=== PATIENT | female | born 1955 | race Caucasian/White ===

== ENCOUNTER 2019-09-01 09:23 | Outpatient (CLI) | payer OTHER, SELFPAY ==
--- NOTE | 2019-09-01 09:37 | XRR_ITS ---
PROCEDURE INFORMATION: Exam: XR Left Hand Exam date and time: 09/01/2019 9:52 AM Age: 64 years old Clinical indication: Hand; Left; Prior surgery; Surgery date: 6+ months; Surgery type: Carpal tunnel; Patient HX: C/O constant pain finger joint and swelling; Additional info: Finger joint pain, swelling TECHNIQUE: Imaging protocol: XR Left hand. Views: 1 or 2 views. COMPARISON: No relevant prior studies available. FINDINGS: Bones/joints: Mild degenerative changes first carpometacarpal joint. osseous structures of the hand are without an acute process. Distal radioulnar joint and radiocarpal joints grossly normal. Carpus without fracture. Metacarpals and phalangeal without fracture or dislocation. No erosive changes or periarticular calcifications. Degenerative changes are present in the distal interphalangeal joints and to a lesser degree the more proximal interphalangeal articulations. Soft tissues: See Bones/joints finding. XR/XR hand LT 2V [id number] IMPRESSION: Mild degenerative changes.
--- NOTE | 2019-09-01 09:38 | XRR_ITS ---
PROCEDURE INFORMATION: Exam: XR Right Hand Exam date and time: 09/01/2019 9:52 AM Age: 64 years old Clinical indication: Hand; Right; Prior surgery; Surgery date: 6+ months; Surgery type: Carpal tunnel; Patient HX: C/O constant finger joint pain, swelling TECHNIQUE: Imaging protocol: XR Right hand. Views: 1 or 2 views. COMPARISON: No relevant prior studies available. FINDINGS: Bones/joints: osseous structures of the hand are without an acute process. Distal radioulnar joint and radiocarpal joints grossly normal. Carpus without fracture. Metacarpals and phalangeal without fracture or dislocation. No erosive changes or periarticular calcifications. Mild degenerative changes first carpometacarpal joint. Soft tissues: See Bones/joints finding. XR/XR hand RT 2V [id number] IMPRESSION: Mild degenerative changes
== END 2019-09-01 09:24 | disposition home or self-care (01) ==
LOC: RAD 09:30
PROVIDERS: PCP Family Medicine; Visit Provider Internal Medicine
DX: M25.541 Pain in joints of right hand (principal); M79.89 Other specified soft tissue disorders
CPT/HCPCS: 73120

== ENCOUNTER 2019-09-14 12:01 | Outpatient (CLI) | payer MEDICAID, SELFPAY ==
--- NOTE | 2019-09-14 12:09 | XRR_ITS ---
PROCEDURE INFORMATION: Exam: XR Lumbosacral Spine, 2 or 3 Views Exam date and time: 09/14/2019 12:17 PM Age: 64 years old Clinical indication: Low back pain TECHNIQUE: Imaging protocol: XR of the lumbosacral spine, 2 or 3 views. COMPARISON: CR Lumbar Spine Flex/Extens [id number] 06/09/2017 5:32 PM FINDINGS: Vertebrae: Normal overall alignment. No fracture evident. Disc spaces reasonably well preserved. Minor vertebral body endplate spurring L3-L4. Mild degenerative facet sclerosis L5-S1. Soft tissues: Unremarkable. XR/XR lumbar spine 2-3V* [id number] IMPRESSION: No acute findings. Mild degenerative changes.
== END 2019-09-14 12:02 | disposition home or self-care (01) ==
LOC: RAD 12:04
PROVIDERS: PCP Family Medicine; Visit Provider Internal Medicine
DX: M54.5 Low back pain (principal)
CPT/HCPCS: 72100

== ENCOUNTER 2021-04-09 10:37 | Outpatient (CLI) | payer MEDICAID, SELFPAY ==
--- NOTE | 2021-04-09 10:54 | XR_ITS ---
WS: [id number] Exam: XR lumbar spine 2-3V* [id number] Date/Time of Exam: 04/09/2021 10:59 AM Reason For Exam: BACK PAIN Comparison 09/14/2019. No fracture or dislocation. Diffuse osteopenia. Disc spaces are preserved. Posterior elements are int act. Mild facet DJD at L4-5 and L5-S1. XR/XR lumbar spine 2-3V* [id number] IMPRESSION: 1. No fracture or malalignment. 2. Osteopenia and mild degenerative change.
== END 2021-04-09 10:38 | disposition home or self-care (01) ==
LOC: RAD 10:44
PROVIDERS: PCP Family Medicine; Visit Provider Internal Medicine
DX: M54.50 Low back pain, unspecified (principal); M85.88 Other specified disorders of bone density and structure, other site
CPT/HCPCS: 72100

== ENCOUNTER 2022-01-06 10:01 | Outpatient (CLI) | payer OTHER, SELFPAY ==
--- NOTE | 2022-01-06 10:44 | XR_ITS ---
WS: [id number] TECHNIQUE: 2 views of the left hand CLINICAL INFORMATION: HAND PAIN/OSTEOARTHRITIS COMPARISON: September 01, 2019 FINDINGS: Osteopenia. Mild degenerative narrowing of the radiocarpal joint. Normal scaphoid and lunate. Mild de generative arthritis 1st CMC and STT. Normal metacarpals. Mild degenerative narrowing involving the PIP and DIP joints. Normal MCP joints. No significant erosive changes XR/XR hand LT 2V [id number] IMPRESSION: 1. Osteopenia. 2. Mild degenerative narrowing at the radiocarpal joint. 3. No significant erosive changes.
--- NOTE | 2022-01-06 10:44 | XR_ITS ---
WS: [id number] TECHNIQUE: 2 views of the right hand CLINICAL INFORMATION: HAND PAIN/OSTEOARTHRITIS COMPARISON: September 01, 2019 FINDINGS: Osteopenia. Moderate degenerative narrowing radiocarpal joint. Normal scaphoid and lunate. Mild degenerative arthritis at the 1st CMC and STT. Minimal degenerative narrowing involving the PIP and DIP joints. Normal metacarpals. Normal MCP joint. XR/XR hand RT 2V [id number] IMPRESSION: 1. Osteopenia. 2. Moderate degenerative narrowing involving the radiocarpal joint. 3. Otherwise mild joint space narrowing as described above. 4. No significant erosive changes.
== END 2022-01-06 10:02 | disposition home or self-care (01) ==
PROVIDERS: PCP Family Medicine; Visit Provider Dermatology
DX: M85.842 Other specified disorders of bone density and structure, left hand (principal); M85.841 Other specified disorders of bone density and structure, right hand; M79.641 Pain in right hand; M79.642 Pain in left hand
CPT/HCPCS: 73120

== ENCOUNTER → 2022-01-21 09:47 | Outpatient (BNVA) | payer MEDICAID, SELFPAY | PROVIDERS: PCP Family Medicine; Visit Provider Family Medicine | DX: Z00.00 Encounter for general adult medical examination without abnormal findings (principal); I10 Essential (primary) hypertension; D64.9 Anemia, unspecified; G89.29 Other chronic pain; M47.9 Spondylosis, unspecified; Z95.2 Presence of prosthetic heart valve | CPT/HCPCS: 80053; 80061; 84443; 85025 ==

== ENCOUNTER 2022-04-24 06:00 | Outpatient (RCR) | payer MEDICARE, MEDICAID, SELFPAY | END 2022-05-16 23:59 | disposition home or self-care (01) | LOC: SPT 06:00 | PROVIDERS: PCP Family Medicine; Visit Provider Nurse Practitioner Adult Health | DX: Z98.1 Arthrodesis status (principal); M54.9 Dorsalgia, unspecified; G89.29 Other chronic pain | CPT/HCPCS: 97110; 97112; 97161 ==

== ENCOUNTER 2022-09-24 12:58 | Outpatient (CLI) | payer MEDICARE, MEDICAID, SELFPAY ==
--- NOTE | 2022-09-24 13:00 | XR_ITS ---
WS: [id number] DEXA (DUAL ENERGY X-RAY ABSORPTIOMETRY) Bone mineral density was performed using a [employer] machine. HISTORY: post-menopausal COMPARISON: None available. Lumbar spine BMD (L1-L4): 0.805 g/cm2 T score: -3.1 Z score: -1.8 Total hip BMD: Left: 0.878 g/cm2. T score: -1.0 Z score: 0.0 Right: 0.874 g/cm2. T score: -1.1 Z score: 0.0 10 year probability of a major osteoporotic fracture is 12.2% IMPRESSION: OSTEOPOROSIS based upon the WHO classification for females.
== END 2022-09-24 12:59 | disposition home or self-care (01) ==
PROVIDERS: PCP Family Medicine; Visit Provider Family Medicine
DX: Z78.0 Asymptomatic menopausal state (principal); M81.0 Age-related osteoporosis without current pathological fracture
CPT/HCPCS: 77080

== ENCOUNTER → 2022-11-06 10:01 | Outpatient (BNVA) | payer MEDICARE, MEDICAID, SELFPAY | PROVIDERS: PCP Family Medicine; Visit Provider Family Medicine | DX: Z01.419 Encounter for gynecological examination (general) (routine) without abnormal findings (principal) | CPT/HCPCS: 87624 ==

== ENCOUNTER → 2022-11-24 08:48 | Outpatient (BNVA) | payer MEDICARE, MEDICAID, SELFPAY | PROVIDERS: PCP Family Medicine; Visit Provider Podiatrist Foot & Ankle Surgery | DX: M72.2 Plantar fascial fibromatosis (principal) | CPT/HCPCS: 99203 ==

== ENCOUNTER 2022-11-28 08:47 | Outpatient (CLI) | payer MEDICARE, MEDICAID, SELFPAY ==
--- NOTE | 2022-11-28 09:09 | MM_ITS ---
WS: [id number] Bilateral screening 3D tomosynthesis digital mammogram, 11/28/2022 Clinical Data: SCREEN Comparison: 07/02/2011, 07/24/2008 Findings: The breast parenchymal pattern shows fibroglandular tissue. No spiculated masses or clustered calcifi cations are seen. There are no secondary signs of carcinoma. There is an asymmetric density in the me dial aspect of the right breast measuring 1.2 cm unchanged. Impression: 1. Negative bilateral mammogram unchanged. 2. Recommend annual screening mammograms. MM/[place] [id number] BIRADS: 1-Negative FOLLOW UP: 1 Year Follow-up The CAD production checker was used.
== END 2022-11-28 08:48 | disposition home or self-care (01) ==
LOC: RAD 08:48
PROVIDERS: PCP Family Medicine; Visit Provider Family Medicine
DX: Z12.31 Encounter for screening mammogram for malignant neoplasm of breast (principal)
CPT/HCPCS: 77063; 77067

== ENCOUNTER → 2022-12-15 15:23 | Outpatient (BNVA) | payer MEDICARE, MEDICAID, SELFPAY | PROVIDERS: PCP Family Medicine; Visit Provider Family Medicine | DX: B35.1 Tinea unguium (principal) | CPT/HCPCS: 80053 ==

== ENCOUNTER 2023-03-30 11:40 | Emergency (ER) | payer MEDICARE, MEDICAID, SELFPAY ==
[2023-03-30 12:13] VITALS: BP 122/76; PULSE 87; RESP 16; TEMP 37.1; O2SAT 98; BMI 32.3
[2023-03-30 12:27] LABS: Basophils # 0.1 10^3/uL (0.0-0.1); Basophils % 0.8 %; Eosinophils # 0.1 10^3/uL (0.0-0.8); Eosinophils % 0.9 %; Hematocrit 39.2 % (36-47); Lymphocytes # 1.2 10^3/uL (0.8-4.8); Mean Corpuscular HGB Conc 32.4 g/dL (30-55); Mean Corpuscular Hemoglobin 29.1 pg (27-33); Mean Corpuscular Volume 89.9 fl (85-98); Mean Platelet Volume 8.7 fL (7.4-10.4); Monocytes # 0.5 10^3/uL (0.2-0.9); Monocytes % 7.5 %; Neutrophils # 4.67 10^3/uL (1.8-7.7); Neutrophils % 71.5 %; Nucleated Red Blood Cells % 0 %; Platelet Count 273 10^3/cmm (157-399); Red Blood Count 4.36 10^6/uL (3.85-5.65); Red Cell Distribution Width 12.2 % (12.1-15.1); White Blood Count 6.53 10^3/uL (3.29-11.43)
[2023-03-30 12:45] LABS: Alanine Aminotransferase 10 U/L (0-33); Albumin Level 4.1 g/dL (3.5-5.2); Alkaline Phosphatase 52 U/L (35-105); Anion Gap 12.4 (5-19); Aspartate Amino Transferase 15 U/L (0-32); Blood Urea Nitrogen 12 mg/dL (8-23); Calcium 8.7 mg/dL (8.5-10.5); Carbon Dioxide 25 mmol/L (22-29); Chloride 105 mmol/L (98-107); Globulin 3.2 g/dL (1.3-4.6); Glomerular Filtration Rate 100.3 mL/min (90-130); Glucose 95 mg/dL (65-115); Osmolality Calculated 286 mOsm/kg (285-295); Potassium 4.4 mmol/L (3.5-5.1); Sodium 138 mmol/L (136-145); Total Bilirubin 0.4 mg/dL (0.15-1.2); Total Protein 7.3 g/dL (6.6-8.7)
[2023-03-30 12:55] VITALS: BP 111/75; PULSE 84; RESP 16; O2SAT 97
[2023-03-30 12:57] LABS: Add Urine Microscopic? NO; Charge for UA Resulting for Rev
--- NOTE | 2023-03-30 13:01 | W.ED.FEMALGU ---
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 Social History Smoking and tobacco/nicotine status: never used tobacco/nicotine Course Vital Signs: Vital signs: Vital Signs Temperature 98.8 F 03/30/23 12:13 Pulse Rate 84 03/30/23 12:55 Respiratory Rate 16 03/30/23 12:55 Blood Pressure 111/75 03/30/23 12:55 Pulse Oximetry 97 03/30/23 12:55 Oxygen Delivery Me thod Room Air 03/30/23 12:55 MDM - Female Lab Data 03/30/23 12:21 03/30/23 12:21 Laboratory Results WBC 6.53 10^3/uL (3.29-11.43) 03/30/23 12:21 RBC 4.36 10^6/uL (3.85-5.65) 03/30/23 12:21 Hgb 12.70 g/dL (11.27-16.99) 03/30/23 12:21 Hct 39.2 % (36-47) 03/30/23 12:21 MCV 89.9 fl (85-98) 03/30/23 12:21 MCH 29.1 pg (27-33) 03/30/23 12:21 MCHC 32.4 g/dL (30-55) 03/30/23 12:21 RDW 12.2 % (12.1-15.1) 03/30/23 12:21 Plt Count 273 10^3/cmm (157-399) 03/30/23 12:21 MPV 8.7 fL (7.4-10.4) 03/30/23 12:21 Neut % (Auto) 71.5 % 03/30/23 12:21 Lymph % (Auto) 19.0 % 03/30/23 12:21 [place] % (Auto) 7.5 % 03/30/23 12:21 Eos % (Auto) 0.9 % 03/30/23 12:21 Baso % (Auto) 0.8 % 03/30/23 12: Neut # (Auto) 4.67 10^3/uL (1.8-7.7) 03/30/23 12:21 Lymph # (Auto) 1.2 10^3/uL (0.8-4.8) 03/30/23 12:21 [place] # (Auto) 0.5 10^3/uL (0.2-0.9) 03/30/23 12:21 Eos # (Auto) 0.1 10^3/uL (0.0-0.8) 03/30/23 12: Baso # (Auto) 0.1 10^3/uL (0.0-0.1) 03/30/23 12: Nucleated RBC % (auto) 0 % 03/30/23 12: Nucleated RBCs # 0.0 /100WBC 03/30/23 12:21 Sodium 138 mmol/L (136-145) 03/30/23 12:21 Potassium 4.4 mmol/L (3.5-5.1) 03/30/23 12: Chloride 105 mmol/L (98-107) 03/30/23 12:21 Carbon Dioxide 25 mmol/L (22-29) 03/30/23 12:21 Anion Gap 12.4 (5-19) 03/30/23 12:21 BUN 12 mg/dL (8-23) 03/30/23 12: Creatinine 0.6 mg/dL (0.5-0.9) 03/30/23 12:21 GFR Calculation 100.3 mL/min (90-130) 03/30/23 12:21 Glucose 95 mg/dL (65-115) 03/30/23 12:21 Calculated Osmolality 286 mOsm/kg (285-295) 03/30/23 12:21 Calcium 8.7 mg/dL (8.5-10.5) 03/30/23 12:21 Total Bilirubin 0.4 mg/dL (0.15-1.2) 03/30/23 12: AST 15 U/L (0-32) 03/30/23 12:21 ALT 10 U/L (0-33) 03/30/23 12:21 Alkaline Phosphatase 52 U/L (35-105) 03/30/23 12:21 Total Protein 7.3 g/dL (6.6-8.7) 03/30/23 12:21 Albumin 4.1 g/dL (3.5-5.2) 03/30/23 12:21 Globulin 3.2 g/dL (1.3-4.6) 03/30/23 12:21 Discharge Plan Discharge Condition: Stable Prescriptions: No Action hydrocodone-acetaminophen 10-300 mg/15 mL solution 15 ml PO Q12H PRN All Day Allergy (cetirizine) 10 mg capsule 10 mg PO DAILY PRN (Reason: allergy symptoms) Qty: 90 1RF pantoprazole 40 mg tablet,delayed release (DR/EC) 40 mg PO DAILY Qty: 90 3RF alprazolam 0.5 mg tablet 0.5 mg PO BID Qty: 60 5RF terbinafine HCl 250 mg tablet See Rx Instructions .ROUTE .COMPLEX Qty: 30 0RF Dose Instruction: Take 1 tablet by mouth once daily Rx Instructions: Take 1 tablet by mouth once daily alendronate 70 mg tablet See Rx Instructions .ROUTE .COMPLEX Qty: 12 0RF Dose Instruction: Take 1 tablet by mouth once a week Rx Instructions: Take 1 tablet by mouth once a week Referrals: Татьяна Roldan DO [Primary Care Provider] - Coding Level of Care Code 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
--- NOTE | 2023-03-30 13:02 | ED_ITS ---
HPI - Back Pain/Injury 2 General: Chief Complaint: Urogenital-Female Stated Complaint: kidney pain Time Seen by Provider: 03/30/23 11:47 Source: patient Mode of arrival: ambulatory Limitations: no limitations History of Present Illness: Patient is a nice 67-year-old female presents to ED today with a complaint of right lower back pain that she believes could be her kidney. Patient states pain started approximately 3 to 4 days ago. She states she has had similar discomforts previously that have been alleviated by drinking water and a heating pad. She states those episodes lasted only approximately a day and got concerned with today's episode due to it lasting 3 to 4 days. Patient states her pain does not radiate into her buttocks or down her leg. She does not complain of pain at her flanks. She has not noticed any hematuria, frequency, urgency, or dysuria. She has no history of kidney stones. She has no abdominal pain. MD elicited complaint: back pain Pertinent past history: prior back pain Onset (ago): day(s) Timing: constant Severity: moderate Similar Symptoms Previously: Yes Location: right lower back Radiation: none Exacerbating factors: none Relieving factors: none Associated symptoms: Reports no associated symptoms; Deny abdominal pain, chills, dysuria, fatigue, fever(s), urinary urgency or vomiting Work related injury: No Review of Systems 2 Const: Denies: fever(s), chills, body aches, fatigue or malaise Card: Denies: chest pain Resp: Denies: dyspnea GI: Denies: abdominal pain, vomiting or diarrhea : Denies: flank pain, difficulty voiding, dysuria, urinary frequency, urinary urgency, urinary hesitancy or pelvic pain Musc: Reports: back pain; Denies: neck pain, extremity pain, extremity swelling, joint pain or joint swelling Skin/Breast: Denies: rash Neuro: Denies: headache(s), numbness in extremities, weakness in extremities, sensory changes or dizziness PFSH ED 2 PFSH: Medical History Chronic back pain GERD (gastroesophageal reflux disease) Seasonal allergies Surgical History History of laparoscopy History of x 2 Hx of pulmonic valve replacement 2006 with cadaver valve Social History Smoking and tobacco/nicotine status: never used tobacco/nicotine Physical Exam 2 Const: COMMON NORMALS: no acute distress, average body habitus, patient oriented x3, no limitations, alert and well nourished Resp: COMMON NORMALS: normal respiratory effort and clear to auscultation bilaterally AUSCULTATION: clear to auscultation bilaterally Cardio: COMMON NORMALS: regular rate and regular rhythm RATE: regular rate RHYTHM: regular rhythm GI: COMMON NORMALS: Normal to inspection, nondistended, normoactive bowel sounds present, Soft to palpation, non-tender, No hepatosplenomegaly present and no masses PALPATION: Yes Soft to palpation and Yes No hepatosplenomegaly present : COMMON NORMALS: Yes no CVA tenderness BLADDER/KIDNEY EXAM: Yes no CVA tenderness Back/Pelvis: COMMON NORMALS: no CVA tenderness, thoracic and lumbar spine normal to inspection, no thoracic nor lumbar tenderness, thoraco-lumbar ROM normal and straight leg raise negative bilaterally LUMBAR SPINE/LOWER BACK: Y es paraspinal muscle tenderness PELVIS: Yes buttocks normal SACRUM: no tenderness COCCYX: no tenderness BACK IMAGE (FEMALE): 1. TTP Extremity: COMMON NORMALS: normal to inspection, no clubbing, cyanosis or edema, no calf tenderness and no pedal edema GENERAL: Yes normal exam except as noted Neuro: COMMON NORMALS: patient oriented x3, moves all extremities, no focal motor deficits, no sensory deficits noted and gait normal S ENSORIUM/ORIENTATION: Yes alert Skin: COMMON NORMALS: no rashes or lesions noted GENERAL SKIN EXAM: no rashes or lesions noted Course 2 Vital Signs: Vital signs: Vital Signs Temperature 98.8 F 03/30/23 12:13 Pulse Rate 84 03/30/23 12:55 Respiratory Rate 16 03/30/23 12:55 Blood Pressure 111/75 03/30/23 12:55 Pulse Oximetry 97 03/30/23 12:55 Oxygen Delivery Me thod Room Air 03/30/23 12:55 MDM - Back Pain/Injury Medical Decision Making Patient has reproducible right lower back pain. She was concerned this could be her kidney. Patient's blood work is completely unremarkable. Her UA is completely clear. She has no pain overlying her right CVA. At this time patient's symptoms seem more musculoskeletal. She has had similar discomforts previously that have been alleviated with the use of a heating pad. Recommend continuing conservative therapies at home. Discussed following up with primary care next week if symptoms do not seem to be improving. Differential Diagnosis Likely lumbar radiculopathy, sciatica, strain of lumbar region and renal colic Medical Records I reviewed the patient's medical records. Labs I reviewed the patient's lab results. 03/30/23 12:21 03/30/23 12:21 Laboratory Results WBC 6.53 10^3/uL (3.29-11.43) 03/30/23 12:21 RBC 4.36 10^6/uL (3.85-5.65) 03/30/23 12: Hgb 12.70 g/dL (11.27-16.99) 03/30/23 12: Hct 39.2 % (36-47) 03/30/23 12: MCV 89.9 fl (85-98) 03/30/23 12: MCH 29.1 pg (27-33) 03/30/23 12: MCHC 32.4 g/dL (30-55) 03/30/23 12: RDW 12.2 % (12.1-15.1) 03/30/23 12: Plt Count 273 10^3/cmm (157-399) 03/30/23 12:21 MPV 8.7 fL (7.4-10.4) 03/30/23 12: Neut % (Auto) 71.5 % 03/30/23 12: Lymph % (Auto) 19.0 % 03/30/23 12: [place] % (Auto) 7.5 % 03/30/23 12: Eos % (Auto) 0.9 % 03/30/23 12: Baso % (Auto) 0.8 % 03/30/23 12: Neut # (Auto) 4.67 10^3/uL (1.8-7.7) 03/30/23 12: Lymph # (Auto) 1.2 10^3/uL (0.8-4.8) 03/30/23 12: [place] # (Auto) 0.5 10^3/uL (0.2-0.9) 03/30/23 12:21 Eos # (Auto) 0.1 10^3/uL (0.0-0.8) 03/30/23 12:21 Baso # (Auto) 0.1 10^3/uL (0.0-0.1) 03/30/23 12:21 Nucleated RBC % (auto) 0 % 03/30/23 12:21 Nucleated RBCs # 0.0 /100WBC 03/30/23 12:21 Sodium 138 mmol/L (136-145) 03/30/23 12:21 Potassium 4.4 mmol/L (3.5-5.1) 03/30/23 12:21 Chloride 105 mmol/L (98-107) 03/30/23 12:21 Carbon Dioxide 25 mmol/L (22-29) 03/30/23 12:21 Anion Gap 12.4 (5-19) 03/30/23 12:21 BUN 12 mg/dL (8-23) 03/30/23 12:21 Creatinine 0.6 mg/dL (0.5-0.9) 03/30/23 12:21 GFR Calculation 100.3 mL/min (90-130) 03/30/23 12:21 Glucose 95 mg/dL (65-115) 03/30/23 12:21 Calculated Osmolality 286 mOsm/kg (285-295) 03/30/23 12:21 Calcium 8.7 mg/dL (8.5-10.5) 03/30/23 12:21 Total Bilirubin 0.4 mg/dL (0.15-1.2) 03/30/23 12:21 AST 15 U/L (0-32) 03/30/23 12:21 ALT 10 U/L (0-33) 03/30/23 12:21 Alkaline Phosphatase 52 U/L (35-105) 03/30/23 12:21 Total Protein 7.3 g/dL (6.6-8.7) 03/30/23 12:21 Albumin 4.1 g/dL (3.5-5.2) 03/30/23 12:21 Globulin 3.2 g/dL (1.3-4.6) 03/30/23 12:21 Urine Color Yellow (Yellow) 03/30/23 12:17 Urine Appearance Clear (CLEAR) 03/30/23 12:17 Urine pH 5 (5-7) 03/30/23 12:17 Ur Specific [place] 1.015 (1.005-1.030) 03/30/23 12:17 Urine Protein Neg (Negative) 03/30/23 12:17 Urine Glucose (UA) Norm (Normal) 03/30/23 12:17 Urine Ketones Negative (Negative) 03/30/23 12:17 Urine Blood Neg (Negative) 03/30/23 12:17 Urine Nitrate Negative (Negative) 03/30/23 12:17 Urine Bilirubin Neg (Negative) 03/30/23 12:17 Urine Urobilinogen Neg mg/dL (Negative) 03/30/23 12:17 Ur Leukocyte Esterase Negative (Negative) 03/30/23 12:17 No radiology studies performed this visit Discharge Plan Discharge Patient Disposition: Home Clinical Impression: Right low back pain Qualifiers: Chronicity: acute Sciatica presence: without sciatica Qualified Code(s): M54.50 - Low back pain, unspecified Condition: Stable Prescriptions: No Action hydrocodone-acetaminophen 10-300 mg/15 mL solution 15 ml PO Q12H PRN All Day Allergy (cetirizine) 10 mg capsule 10 mg PO DAILY PRN (Reason: allergy symptoms) Qty: 90 1RF pantoprazole 40 mg tablet,delayed release (DR/EC) 40 mg PO DAILY Qty: 90 3RF alprazolam 0.5 mg tablet 0.5 mg PO BID Qty: 60 5RF terbinafine HCl 250 mg tablet See Rx Instructions .ROUTE .COMPLEX Qty: 30 0RF Dose Instruction: Take 1 tablet by mouth once daily Rx Instructions: Take 1 tablet by mouth once daily alendronate 70 mg tablet See Rx Instructions .ROUTE .COMPLEX Qty: 12 0RF Dose Instruction: Take 1 tablet by mouth once a week Rx Instructions: Take 1 tablet by mouth once a week Discharge Orders: Discharge ED (Routine); Ordered 03/30/23 Ordered By: Chrissie Rodríguez Referrals: Татьяна Roldan DO [Primary Care Provider] - Coding Level of Care Code 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
[2023-03-30 13:13] LABS: Bilirubin Urine Neg (Negative); Blood Urine Neg (Negative); Glucose Urine UA Norm (Normal); Ketones Urine Negative (Negative); Leukocyte Esterase Urine Negative (Negative); Nitrate Urine Negative (Negative); Protein Urine Neg (Negative); Specific Gravity, Urine 1.015 (1.005-1.030); Urine Appearance Clear (CLEAR); Urine Color Yellow (Yellow); Urobilinogen Urine Neg (Negative); pH Urine 5 (5-7)
== END 2023-03-30 13:25 | disposition home or self-care (01) ==
PROVIDERS: Emergency Provider Physician Assistant; PCP Family Medicine
DX: M54.50 Low back pain, unspecified (principal)
CPT/HCPCS: 36415; 80053; 81003; 85025; 99283

== ENCOUNTER 2023-06-02 15:30 | Outpatient (CLI) | payer MEDICARE, MEDICAID, SELFPAY | END 2023-06-02 15:31 | disposition home or self-care (01) | LOC: SLEEP 06-03 15:08 | PROVIDERS: PCP Family Medicine; Visit Provider Family Medicine | DX: G47.33 Obstructive sleep apnea (adult) (pediatric) (principal) | CPT/HCPCS: G0399 ==

== ENCOUNTER → 2023-06-23 09:54 | Outpatient (BNVA) | payer MEDICARE, MEDICAID, SELFPAY | PROVIDERS: PCP Family Medicine; Referring Provider Family Medicine; Visit Provider Surgery | DX: Z12.11 Encounter for screening for malignant neoplasm of colon (principal) | CPT/HCPCS: 99024; 99203 ==

== ENCOUNTER 2023-10-08 06:48 | Day surgery (SDC) | payer MEDICARE, MEDICAID, SELFPAY ==
--- NOTE | 2023-10-08 06:50 | W.PM.OPSFHP ---
Same Day Surgery H&P Indication for Procedure/HPI DATE OF PROCEDURE: October 08, 2023 CHIEF COMPLAINT/INDICATIONFOR SURGICAL PROCEDURE: need for screening colonoscopy PREOP DIAGNOSIS: need for screening colonoscopy PLANNED PROCEDURE: Operation Date: 10/08/23 07:45 Proposed Procedures p Colonoscopy 36606, Z12.11(Not Applicable) - Mukul Benites MD Medications/Allergies* Home Medications Medication Instructions Recorded Confirmed Type hydrocodone 10 mg-acetaminophen 15 ml PO Q12H PRN Pain 11/01/21 10/06/23 History 300 mg/15 mL oral solution calcium carbonate (Calcium 600) 600 mg PO BID 04/28/23 10/06/23 History cholecalciferol (vitamin D3) 50 50 mcg PO DAILY 04/28/23 10/06/23 History mcg (2,000 unit) capsule ferrous sulfate 325 mg (65 mg 325 mg PO DAILY 04/28/23 10/06/23 History iron) tablet multivitamin 1 tab PO DAILY 04/28/23 10/06/23 History alendronate 70 mg tablet 70 mg PO .WEEKLY 10/06/23 10/06/23 History Allergies/Adverse Reactions Allergy/AdvReac Type Severity Reaction Status Date / Time No Known Allergies Allergy Verified 10/06/23 10:40 Pertinent History/Comorbid Conditions* Medical History (Updated 08/11/23 @ 10:31 by Татьяна Roldan DO) Chronic back pain GERD (gastroesophageal reflux disease) Seasonal allergies Surgical History (Updated 08/29/22 @ 14:00 by Татьяна Roldan DO) History of laparoscopy History of x 2 Hx of pulmonic valve replacement 2006 with cadaver valve Family History (Updated 06/23/23 @ 10:29 by ANDREW Mo) Congestive heart failure (CHF) Mother Father Social History Smoking and tobacco/nicotine status: never used tobacco/nicotine Pertinent Exam Findings alert, oriented x 3, clear to auscultation bilaterally and procedure specific exam findings Recommendations Surgery/Procedure today Coding Level of Care Code Acute Code for Chg Fwd
[2023-10-08 07:01] VITALS: BP 123/75; PULSE 87; RESP 16; TEMP 36.3; O2SAT 99; BMI 32.3
--- NOTE | 2023-10-08 07:07 | ANES.PREANE2 ---
Pre-Anesthetic Assessment Height/Weight: Height 1.5 m Weight 72.575 kg Temp Pulse Resp BP Pulse Ox O2 Del Method 97.3 F L 87 16 123/75 99 Room Air 10/08/23 07:01 10/08/23 07:01 10/08/23 07:01 10/08/23 07:01 10/08/23 07:01 10/08/23 07:01 Preop Diagnosis: need for screening colonoscopy Operation Date: 10/08/23 07:45 Proposed Procedures p Colonoscopy 14038, Z12.11(Not Applicable) - Mukul Benites MD Familial anesthetic complications: none Was Beta Benja taken within 24 hours: N/A Was Clonidine taken within 24 hours: N/A Last intake: Intake Last Liquid Date 10/07/23 Last Liquid Time 22:30 Last Solid Date 10/06/23 Last Solid Time 19:00 Social No alcohol and No tobacco Exam alert, oriented x 3, clear to auscultation bilaterally and regular rate & rhythm Airway Submandibular: within normal limits Cervical ROM: within normal limits Mallampati: Class II Dentition: partials Pulmonary Sleep Apnea (compliant) CV/HEM Coronary Artery Disease Pulmonic valve replaced in 2006, 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 None reported Hepatic None reported GI Gastroesophageal Reflux Disease Metabolic None reported Musc/skel Lower Back Pain (entire back pain- pain management) Neuropsych Anxiety and Depression Anesthetic Plan ASA status: 3 Anesthesia: MAC Medications/Allergies Home Medications Medication Instructions Recorded Confirmed Last Taken Type hydrocodone 10 mg-acetaminophen 15 ml PO Q12H PRN Pain 11/01/21 10/08/23 10/08/23 History 300 mg/15 mL oral solution alprazolam 0.25 mg tablet 0.25 mg PO BID PRN anxiety 30 days 04/28/23 10/08/23 10/03/23 Rx #30 tabs calcium carbonate (Calcium 600) 600 mg PO BID 04/28/23 10/08/23 10/08/23 History cetirizine 10 mg capsule (All Day 10 mg PO DAILY PRN allergy 04/28/23 10/08/23 10/07/23 Rx Allergy (cetirizine)) symptoms #90 caps cholecalciferol (vitamin D3) 50 50 mcg PO DAILY 04/28/23 10/08/23 10/05/23 History mcg (2,000 unit) capsule ferrous sulfate 325 mg (65 mg 325 mg PO DAILY 04/28/23 10/08/23 10/07/23 History iron) tablet multivitamin 1 tab PO DAILY 04/28/23 10/08/23 10/05/23 History Auto Titrating CPAP set to 6-16 #1 ea 06/12/23 10/08/23 Unknown Rx with supplies pantoprazole 40 mg tablet,delayed 40 mg PO DAILY stomach #90 tabs 07/27/23 10/08/23 10/08/23 Rx release oxybutynin chloride 15 mg 15 mg PO DAILY #90 tabs 08/11/23 10/08/23 10/06/23 Rx tablet,extended release 24 hr alendronate 70 mg tablet 70 mg PO .WEEKLY 10/06/23 10/08/23 10/06/23 History Allergies Allergy/AdvReac Type Severity Reaction Status Date / Time No Known Allergies Allergy Verified 10/06/23 10:40 [facility] Anesthesia Medical History Chronic back pain GERD (gastroesophageal reflux disease) Seasonal allergies Surgical History History of laparoscopy History of x 2 Hx of pulmonic valve replacement 2006 with cadaver valve Family History Mother Congestive heart failure (CHF) Father Congestive heart failure (CHF) Social History Smoking and tobacco/nicotine status: never used tobacco/nicotine Data Anesthesia Cardiac Studies: No Data to Display
[2023-10-08] MEDS: sodium chloride 0.9% 1,000 ML 30 ML IV (07:09)
[2023-10-08 08:03] VITALS: BP 105/64; PULSE 78; RESP 16; TEMP 36.4; O2SAT 100
[2023-10-08 08:18] VITALS: BP 112/71; PULSE 74; RESP 18; O2SAT 100
--- NOTE | 2023-10-08 08:35 | ANE.PACU2 ---
Inpatient post-anesthesia follow up: Airway intact: Yes Vital signs: Temperature 97.5 F Pulse Rate 74 Respiratory Rate 18 Blood Pressure 112/71 Pulse Oximetry 100 Oxygen Delivery Me thod Room Air Oxygen Flow Rate 4 Fraction of Inspir ed Oxygen Hydration adequate: Yes Nausea and vomiting: No Pain level: 1 Mental status: Baseline
== END 2023-10-08 08:35 | disposition home or self-care (01) ==
PROVIDERS: PCP Family Medicine; Visit Provider Surgery
PROC: 0DJD8ZZ Inspection of Lower Intestinal Tract, Via Natural or Artificial Opening Endoscopic (ICD-10-PCS; CPT 45378; principal; 2023-10-08 07:45)
DX: Z12.11 Encounter for screening for malignant neoplasm of colon (principal); K64.4 Residual hemorrhoidal skin tags; K57.30 Diverticulosis of large intestine without perforation or abscess without bleeding; I25.10 Atherosclerotic heart disease of native coronary artery without angina pectoris; K21.9 Gastro-esophageal reflux disease without esophagitis
CPT/HCPCS: G0121; J2704; J7030

== ENCOUNTER 2023-11-04 06:00 | Outpatient (CLI) | payer MEDICARE, MEDICAID, SELFPAY | END 2023-11-04 06:01 | disposition home or self-care (01) | LOC: RAD 11-20 10:28 | PROVIDERS: PCP Family Medicine; Visit Provider Family Medicine | DX: D64.9 Anemia, unspecified (principal) | CPT/HCPCS: 80053; 82728; 83550; 85025 ==

== ENCOUNTER 2023-12-02 08:49 | Outpatient (CLI) | payer MEDICARE, MEDICAID, SELFPAY ==
--- NOTE | 2023-12-02 09:00 | MM_ITS ---
WS: [id number] BILATERAL SCREENING DIGITAL TOMOSYNTHESIS MAMMOGRAM WITH CAD HISTORY: screening COMPARISON: 11/28/2022, 07/02/2011 Bilateral CC and MLO views with tomosynthesis and synthetic mammography submitted. Computer aided det ection analyzed. Breast composition: There are scattered areas of fibroglandular density. No suspicious masses, microc alcifications or architectural distortion. Long-term stability of a high density mass in the medial i nferior RIGHT breast measuring 11 x 10 mm. Additional bilateral benign calcifications. Curvilinear as ymmetry and increased density in the central LEFT breast on the MLO projection is reidentified. Very similar in appearance to the study from 2011. MM/MM scr tomosynthesis [id number] IMPRESSION: BI-RADS: 2 - Benign. FOLLOW UP: 1 Year Follow-up
== END 2023-12-02 08:50 | disposition home or self-care (01) ==
LOC: RAD 08:49
PROVIDERS: PCP Family Medicine; Visit Provider Family Medicine
DX: Z12.31 Encounter for screening mammogram for malignant neoplasm of breast (principal); R92.323 Mammographic fibroglandular density, bilateral breasts; N63.10 Unspecified lump in the right breast, unspecified quadrant; R92.1 Mammographic calcification found on diagnostic imaging of breast
CPT/HCPCS: 77063; 77067

== ENCOUNTER → 2023-12-04 13:31 | Outpatient (BNVA) | payer MEDICARE, MEDICAID, SELFPAY | PROVIDERS: PCP Family Medicine; Visit Provider Nurse Practitioner | DX: R39.9 Unspecified symptoms and signs involving the genitourinary system (principal); R82.90 Unspecified abnormal findings in urine | CPT/HCPCS: 81000; 87086 ==

== ENCOUNTER 2024-12-02 13:40 | Outpatient (CLI) | payer MEDICARE, MEDICAID, SELFPAY ==
--- NOTE | 2024-12-02 13:40 | MM_ITS ---
WS: [id number] BILATERAL 3D TOMOSYNTHESIS DIGITAL SCREENING MAMMOGRAPHY WITH CAD CLINICAL INFORMATION: screening HISTORY: Screening mammogram. No current complaints. COMPARISON: 2023 TECHNIQUE: Bilateral CC and MLO views. FINDINGS: Scattered fibroglandular densities bilaterally. No suspicious focal mass, asymmetry, calcifications, or architectural distortion. No evidence of malignancy. Lucent centered calcification LEFT breast. A few intramammary lymph nodes bilaterally similar to previous. Stable asymmetric parenchymal tissue in the inferior medial RIGHT breast MM/MM scr tomosynthesis [id number] IMPRESSION: DENSITY: There are scattered areas of fibroglandular density. BI-RADS: 2 - Benign. FOLLOW UP: 1 Year Follow-up Recommend return to annual screening mammography.
== END 2024-12-02 13:41 | disposition home or self-care (01) ==
LOC: RAD 13:40
PROVIDERS: PCP Family Medicine; Visit Provider Family Medicine
DX: Z12.31 Encounter for screening mammogram for malignant neoplasm of breast (principal); R92.323 Mammographic fibroglandular density, bilateral breasts; R92.1 Mammographic calcification found on diagnostic imaging of breast; R59.0 Localized enlarged lymph nodes; N64.89 Other specified disorders of breast
CPT/HCPCS: 77063; 77067